=== PATIENT | male | born 1975 | race Two or more races ===

== ENCOUNTER 2022-03-20 10:58 | Emergency (ER) | payer SELFPAY ==
[~2022-03-20] VITALS: Ht 170.2 cm; Wt 63.5 kg
[2022-03-20 13:15] LABS: Urine Bacteria FEW /hpf (None Seen); Urine Blood Negative /uL (Negative); Urine Mucus FEW (None Seen); Urine Specific Gravity 1.008 (1.001-1.035); Urine WBC <1 /hpf (0 - 3)
[2022-03-20 13:26] VITALS: BP 125/77
[2022-03-20] MEDS ORDERED: CLOT1CRE78 TOP (14:15)
[2022-03-20] MEDS ORDERED: IBUP800T27 PO (14:15)
[2022-03-20] MEDS ORDERED: cefTRIAXone SOD 1,000 MG VL IM ONE (14:15)
[2022-03-20] MEDS ORDERED: CEPH-509 PO (14:15)
== END 2022-03-20 14:58 | disposition home or self-care (01) ==
LOC: ER 10:58
DX: N47.6 Balanoposthitis (principal)
CPT/HCPCS: 81001; 96372; 99283; J0696